=== PATIENT | male | born 1945 | race Caucasian/White ===

== ENCOUNTER 2016-10-07 16:07 | Emergency (ER) | payer OTHER ==
--- NOTE | 2016-10-12 14:50 | ER ---
ADMIT: 10/07/2016 RM/LOC: ER [facility] MR#: [id number] [address] [id number] TAQUERIA OLMSTEAD [address] [place] [address] *CELL Emergency Room Report SEX: M AGE: 71 : 1945 DATE: 10/07/2016 ADDENDUM: See T-sheet for complete H and P. A 71-year-old male comes in after he apparently fell off a park bench and hit his head on the ground. He had been drinking quite heavily today. The patient is a poor historian due to his level of alcohol intoxication, but apparently, he has a long history of alcohol abuse. On physical exam, he does have an abrasion to his left upper forehead with some mild swelling. He has no other injuries I can appreciate. Pupils are equally round and reactive to light. Extraocular muscles are intact. Neurologically, his exam is consistent with being intoxicated, but no focal findings. There is a strong smell of alcohol on the patient's breath. His vital signs were unremarkable here, and a CT of his head showed no acute findings. At this point, the patient is discharged home in stable condition to return for any concerning symptoms. [facility] and he is instructed to not drink alcohol in excess. Kash Ac MD/ aspen JOB #: [id number] CC: Devin Johnson MD, Attending Physician
== END 2016-10-07 17:40 | disposition home or self-care (01) ==
LOC: ER 16:07
DX: S00.83XA Contusion of other part of head, initial encounter (principal); F10.129 Alcohol abuse with intoxication, unspecified; F17.210 Nicotine dependence, cigarettes, uncomplicated; J43.9 Emphysema, unspecified; Z79.899 Other long term (current) drug therapy; Z79.82 Long term (current) use of aspirin; W18.30XA Fall on same level, unspecified, initial encounter; Y92.830 Public park as the place of occurrence of the external cause